=== PATIENT | female | born 1995 | race Caucasian/White ===

== ENCOUNTER 2020-08-31 06:01 | Day surgery (SDC) | payer SELFPAY ==
[2020-08-26 16:24] VITALS: BMI 19.1
[2020-08-31] MEDS ORDERED: fentaNYL CITRATE 250 MCG/5 ML VIAL ONE (07:07)
[2020-08-31] MEDS ORDERED: SUCCINYLCHOLINE CHLORIDE 200 MG/10 ML SYRINGE ONE (07:08)
[2020-08-31] MEDS ORDERED: PROPOFOL 20 ML ONE ×4 (07:08)
[2020-08-31] MEDS ORDERED: MIDAZOLAM HCL 2 MG/2 ML SINGLE DOSE VIAL ONE (07:08)
[2020-08-31] MEDS ORDERED: GENTAMICIN SO4 80 MG/2 ML VIAL ONE (07:10)
[2020-08-31] MEDS ORDERED: ceFAZolin SODIUM 1 GM VIAL ONE ×3 (07:10→09:24)
[2020-08-31] MEDS ORDERED: BUPIVACAINE HCL/PF 0.25% (2.5MG/ML) 10 ML VIAL ONE ×2 (07:11→08:57)
[2020-08-31] MEDS ORDERED: LIDOCAINE 1%/EPI 1:100000 (20 ML MULTI DOSE VIAL) ONE (07:11)
[2020-08-31] MEDS ORDERED: KETOROLAC TROMETHAMINE 30 MG/1 ML VIAL ONE (07:56)
[2020-08-31] MEDS ORDERED: LIDOCAINE HCL/PF 2% SDV 5ML VIAL ONE (07:56)
[2020-08-31] MEDS ORDERED: DEXAMETHASONE SOD PHOSPHATE 4 MG/1 ML VIAL ONE (07:56)
[2020-08-31] MEDS ORDERED: ONDANSETRON 4 MG/2 ML VIAL ONE (07:56)
[2020-08-31] MEDS ORDERED: ROCURONIUM BROMIDE 50 MG/5 ML SYRINGE ONE (08:21)
[2020-08-31] MEDS ORDERED: EPHEDRINE SULFATE/0.9% NACL/PF 50 MG/10 ML SYRINGE NR ONE (08:48)
[2020-08-31] MEDS ORDERED: GUM MASTIC/STORAX/MSAL/ALCOHOL 1 DRP DROPSBTL MC ONE (10:08)
[2020-08-31] MEDS ORDERED: ONDANSETRON 4 MG/2 ML VIAL IVPUSH PRN (10:39)
[2020-08-31] MEDS ORDERED: oxyCODONE HCL 5 MG TABLET PO PRN ×2 (10:39)
[2020-08-31] MEDS ORDERED: PROMETHAZINE HCL 25 MG/1 ML VIAL IVPUSH PRN (10:39)
[2020-08-31 13:00] VITALS: BP 112/60; PULSE 66; TEMP 97.8
== END 2020-08-31 13:00 | disposition home or self-care (01) ==
LOC: FASU 06:01
PROVIDERS: ATTEND Surgery
PROC: 0H0V0JZ Alteration of Bilateral Breast with Synthetic Substitute, Open Approach (ICD-10-PCS; principal; 2020-08-31 08:16)
DX: Z41.1 Encounter for cosmetic surgery (principal)
CPT/HCPCS: 81025; 94760